=== PATIENT | female | born 2000 | race Hispanic/Latino ===

== ENCOUNTER 2021-10-17 21:35 | Emergency (ER) | payer OTHER ==
[~2021-10-17] VITALS: Ht 157.5 cm; Wt 104.8 kg
[2021-10-17 21:38] VITALS: BP 122/80
[2021-10-17 22:21] LABS: BILIRUBIN,URINE Negative (NEGATIVE); COLOR,URINE Yellow (YELLOW); GLUCOSE, URINE (UA) Negative (NEGATIVE); KETONES,URINE Trace mg/dL (NEGATIVE); LEUKOCYTE ESTERASE ,URINE Large (NEGATIVE); NITRATE,URINE Negative (NEGATIVE); OCCULT BLOOD,URINE Nonhemolyzed Trace (NEGATIVE); PH,URINE 5.5 (5.0-8.0); PROTEIN,URINE Trace mg/dL (NEGATIVE)
[2021-10-17 22:22] LABS: APPEARANCE,URINE CLOUDY (CLEAR)
[2021-10-17 22:24] LABS: HCG,QUAL RESULT NEGATIVE (NEGATIVE)
[2021-10-17 22:34] LABS: BACTERIA,URINE Few /HPF (None Seen); WBC,URINE 26-50 /HPF (0-1)
[2021-10-17 22:35] LABS: YEAST,URINE BUDDING Rare /HPF (None Seen)
[2021-10-17 22:38] LABS: SQUAMOUS EPITHELIAL CELL,UR Many /HPF (0-2)
[2021-10-17] MEDS ORDERED: CEPH500B PO (22:40)
[2021-10-17] MEDS ORDERED: PHEN-847 PO (22:40)
[2021-10-17] MEDS ORDERED: PHENAZOPYRIDINE HCL 200 MG TABLET ONE (22:47)
[2021-10-17] MEDS ORDERED: CEFTRIAXONE 1G VIAL ONE (22:47)
[2021-10-17] MEDS ORDERED: CEFTRIAXONE 1G VIAL IM ONE (23:00)
[2021-10-17] MEDS ORDERED: PHENAZOPYRIDINE HCL 200 MG TABLET PO ONE (23:00)
== END 2021-10-17 23:15 | disposition home or self-care (01) ==
LOC: EDH 21:35
DX: N39.0 Urinary tract infection, site not specified (principal); R30.0 Dysuria
CPT/HCPCS: 81001; 81025; 87088; 96372; 99283; J0696

== ENCOUNTER 2022-03-03 14:06 | Emergency (ER) | payer OTHER ==
[~2022-03-03] VITALS: Ht 157.5 cm; Wt 101.2 kg
[~2022-03-03 14:06] MED LIST: CEPH500B PO; PHEN-847 PO
[2022-03-03 14:08] VITALS: BP 117/79
[2022-03-03] MEDS ORDERED: ACETAMINOPHEN 500 MG TABLET PO ONE (16:00)
[2022-03-03 16:12] LABS: APPEARANCE,URINE CLOUDY (CLEAR); BILIRUBIN,URINE NEGATIVE (NEGATIVE); COLOR,URINE YELLOW (YELLOW); GLUCOSE, URINE (UA) NEGATIVE (NEGATIVE); KETONES,URINE 40 mg/dL (NEGATIVE); LEUKOCYTE ESTERASE ,URINE 75 Leu/uL (NEGATIVE); NITRATE,URINE NEGATIVE (NEGATIVE); OCCULT BLOOD,URINE NEGATIVE (NEGATIVE); PROTEIN,URINE 20 mg/dL (NEGATIVE); UROBILINOGEN,URINE 0.2 mg/dL (0.2-1.0)
[2022-03-03 16:17] LABS: BACTERIA,URINE RARE /HPF (None Seen); HCG,QUALITATIVE URINE NEGATIVE (NEGATIVE); MUCUS,URINE RARE LPF (None Seen); SQUAMOUS EPITHELIAL CELL,UR MANY /HPF (0-2)
[2022-03-03] MEDS ORDERED: IBUP-2070 PO (17:35)
== END 2022-03-03 17:41 | disposition home or self-care (01) ==
LOC: EDH 14:06
DX: S00.83XA Contusion of other part of head, initial encounter (principal); M54.2 Cervicalgia; M25.511 Pain in right shoulder; Z79.899 Other long term (current) drug therapy; Y04.0XXA Assault by unarmed brawl or fight, initial encounter; Y93.89 Activity, other specified; Y92.89 Other specified places as the place of occurrence of the external cause; Y99.8 Other external cause status
CPT/HCPCS: 72125; 81001; 81025; 87088

== ENCOUNTER 2022-10-07 12:37 | Emergency (ER) | payer OTHER ==
[~2022-10-07] VITALS: Ht 157.5 cm; Wt 100.2 kg
[~2022-10-07 12:37] MED LIST changes: +IBUP-2070 PO
[2022-10-07 14:05] LABS: APPEARANCE,URINE CLOUDY (CLEAR); BILIRUBIN,URINE NEGATIVE (NEGATIVE); COLOR,URINE YELLOW (YELLOW); GLUCOSE, URINE (UA) NEGATIVE (NEGATIVE); KETONES,URINE 150 mg/dL (NEGATIVE); LEUKOCYTE ESTERASE ,URINE 25 Leu/uL (NEGATIVE); NITRATE,URINE NEGATIVE (NEGATIVE); OCCULT BLOOD,URINE SMALL (NEGATIVE); PROTEIN,URINE 50 mg/dL (NEGATIVE); UROBILINOGEN,URINE 0.2 mg/dL (0.2-1.0)
[2022-10-07 14:10] LABS: HCG,QUALITATIVE URINE NEGATIVE (NEGATIVE)
[2022-10-07 14:14] LABS: MUCUS,URINE RARE LPF (None Seen); SQUAMOUS EPITHELIAL CELL,UR FEW /HPF (0-2)
[2022-10-07] MEDS ORDERED: KETOROLAC 15MG/ML VIAL (15MG/ML) ONE (15:28)
[2022-10-07] MEDS ORDERED: KETOROLAC 15MG/ML VIAL (15MG/ML) IV ONE (15:30)
[2022-10-07] MEDS ORDERED: 0.9%NACL 1000ML 2,000 ML IV ONE (15:30)
[2022-10-07 15:33] LABS: HEMATOCRIT 40.1 % (36-48); MEAN CORPUSCULAR HEMOGLOBIN 26.5 pg (27.0-33.0); MEAN CORPUSCULAR HGB CONC 32.2 g/dL (32.0-36.0); MEAN CORPUSCULAR VOLUME 82.5 fL (79-99); PLATELET COUNT (AUTO) 248 K/uL (130-400); RED BLOOD CELL COUNT(AUTO) 4.86 MIL/uL (4.00-5.50); RED CELL DISTRIBUTION WIDTH 13.9 % (11.0-15.5); WHITE BLOOD COUNT (AUTO) 14.7 K/uL (4.8-10.8)
[2022-10-07 15:40] LABS: BASOPHILS % (AUTO) 0.3 % (0.0-5.0); MONOCYTES % (AUTO) 7.1 % (3.0-13.0); NEUTROPHILS % (AUTO) 80.2 % (40.0-77.0)
[2022-10-07 15:46] LABS: CREATININE 0.8 mg/dL (0.5-1.5); POTASSIUM 3.7 mmol/L (3.5-5.1)
[2022-10-07 15:57] LABS: ALBUMIN 3.8 g/dL (3.5-5.0); TOTAL PROTEIN, SERUM 8.7 g/dL (6.0-8.3)
[2022-10-07] MEDS ORDERED: CEFTRIAXONE 1G VIAL IVPB ONE (16:30)
[2022-10-07] MEDS ORDERED: SULF1TAB42 PO (17:03)
[2022-10-07 17:10] VITALS: BP 124/72
== END 2022-10-07 17:12 | disposition home or self-care (01) ==
LOC: EDH 12:37
DX: N39.0 Urinary tract infection, site not specified (principal); Z79.899 Other long term (current) drug therapy; Z20.822 Contact with and (suspected) exposure to COVID-19
CPT/HCPCS: 99284; 96374; 87635; 96361; 96375; 80053; 84702; 85025; 87088; 87880; 87804 ×2; 81001; 81025; 36415; C9803; J7030; J0696; J1885